=== PATIENT | male | born 1950 | race African-American/Black ===

== ENCOUNTER 2017-04-22 09:04 | Inpatient (IN) | payer OTHER, MEDICARE ==
[~2017-04-22] VITALS: Ht 170.2 cm; Wt 131.0 kg
[~2017-04-22 09:04] MED LIST: AMLO10 PO; ASPI81 PO; ATEN-100 PO; CHOL1TAB6 OR; GABA300 PO; GABA600T PO; GLYB5TAB3 OR; HYDR12.56 PO; LASI80TA PO; LATA0.00 EACH EYE; LISI-366 PO; OMEP20TA OR; OXYC5 PO; POTA-243 PO; THEO100C PO; VIAG50TA PO
[2017-04-22 09:15] VITALS: BP 188/70; PULSE 91; RESP 25; TEMP 97.5; O2SAT 95
[2017-04-22] MEDS ORDERED: SODIUM CHLOR 0.9% 1000 ML INJ 1,000 ML IV SCH (09:23)
[2017-04-22] MEDS ORDERED: METF500T4 PO (09:28)
[2017-04-22] MEDS ORDERED: GABA300C5 PO ×2 (09:28)
[2017-04-22] MEDS ORDERED: AMLO10TA2 PO (09:28)
[2017-04-22] MEDS ORDERED: POTA-163 PO (09:28)
[2017-04-22] MEDS ORDERED: ASPI81TA23 PO (09:28)
[2017-04-22] MEDS ORDERED: OMEP40CA2 (09:28)
[2017-04-22] MEDS ORDERED: ATEN25TA PO (09:28)
[2017-04-22] MEDS ORDERED: TIZA4CAP3 PO (09:28)
[2017-04-22] MEDS ORDERED: FURO40TA PO (09:28)
[2017-04-22] MEDS ORDERED: INSULIN (09:28)
[2017-04-22] MEDS ORDERED: LISI-515 PO (09:28)
[2017-04-22] MEDS ORDERED: SIMV20TA PO (09:28)
[2017-04-22] MEDS ORDERED: MORPHINE SULFATE 4 MG/ML INJ IV PUSH ONE (09:30)
[2017-04-22] MEDS ORDERED: SODIUM CHLORIDE 0.9% FLUSH 10 ML FLUSH IV FLUSH PRN (09:30)
[2017-04-22] MEDS ORDERED: ONDANSETRON HCL 4 MG/2 ML VIAL IVP ONE (09:30)
--- NOTE | 2017-04-22 09:32 | PD ---
HPI Chief Complaint: General Weakness Time Seen by Provider: 09:14 Travel History International Travel<30 days: No Contact w/Intl Traveler<30days: No Traveled to known affect area: No History of Present Illness HPI The patient is a 67-year-old [place] male who presents emergency department for generalized weakness. The patient states his symptoms started on Friday with low back pain and lower extremity weakness. The patient states his legs feel weak, states that his legs will go out and he will be unable to ambulate. The patient states his son helped him up 2 days ago after his legs gave out, however, states she was at home earlier today with his legs gave out. He does complain of low back pain across the mid to lower aspect of the back with bilateral leg weakness, especially at the knees. He does have a history of chronic back pain but denies any trauma, does take oxycodone that was prescribed at the [facility] for his back pain. He does have a remote history of prostate cancer, denies any history of known metastasis. He does complain of generalized weakness, denies any chest pain, shortness breath, nausea, vomiting, diarrhea, or abdominal pain. He denies any dysuria. Symptoms are moderate without any alleviating or exacerbating factors. The patient's primary physician is Dr. Mireya Hamilton. [facility] Past Medical History Arthritis: Yes Atrial Fibrillation: Yes Cancer: Yes (HX PROSTATE CA WITH RADIATION) High Cholesterol: Yes Diabetes: Yes Patient Takes Glucophage: Yes Genitourinary: Yes (UTI) Hypertension: Yes Sleep Apnea: Yes Past Surgical History Other Surgery: Yes (HERNIA REPAIR) Social History Alcohol Use: No Tobacco Use: No Substance Use: No Allergies-Medications (Allergen,Severity, Reaction): Coded Allergies: No Known Allergies (Verified Adverse Reaction, Unknown, 04/22/17) Reported Meds & Prescriptions Reported Meds & Active Scripts Active Reported [Insulin] Furosemide 40 Mg Tab 40 Mg PO DAILY Tizanidine (Tizanidine HCl) 4 Mg Cap 4 Mg PO TID Simvastatin 20 Mg Tab 20 Mg PO DAILY Atenolol 25 Mg Tab 37.5 Mg PO DAILY Metformin ER (Metformin HCl) 500 Mg Julián 500 Mg PO BID With evening meal Potassium Chloride ER (Potassium Chloride) 20 Meq Tab 20 Meq PO DAILY Gabapentin 300 Mg Cap 900 Mg PO HS Gabapentin 300 Mg Cap 600 Mg PO BID Lisinopril 20 Mg Tab 20 Mg PO DAILY Omeprazole 40 Mg Cap 40 Mg DAILY Amlodipine (Amlodipine Besylate) 10 Mg Tab 10 Mg PO BID Aspirin EC (Aspirin) 81 Mg Tabdr 81 Mg PO DAILY Review of Systems Except as stated in HPI: all other systems reviewed are Neg General / Constitutional: No: Fever Cardiovascular: No: Chest Pain or Discomfort Respiratory: No: Shortness of Breath Gastrointestinal: No: Nausea, Vomiting, Diarrhea, Abdominal Pain Genitourinary: No: Dysuria, Decreased Urinary Output Musculoskeletal: Positive: Weakness, Pain Neurologic: No: Paresthesia, Sensory Disturbance Physical Exam Narrative GENERAL: Awake, alert, 67-year-old male who appears his stated age and is in no acute respiratory distress. SKIN: Focused skin assessment warm/dry. HEAD: Atraumatic. Normocephalic. EYES: Pupils equal and round. No injection or drainage. ENT: No nasal bleeding or discharge. Mucous membranes pink and moist. NECK: Trachea midline. No JVD. CARDIOVASCULAR: Regular rate and rhythm. No murmur appreciated. Heart rate in the 90s. RESPIRATORY: No accessory muscle use. Clear to auscultation. Breath sounds equal bilaterally. GASTROINTESTINAL: Abdomen soft, obese with large pannus. Genitourinary: Uncircumcised phallus. Back: No midline tenderness of the lumbar thoracic region. No tenderness of the sacroiliac. MUSCULOSKELETAL: No obvious deformities. Bilateral lower extremity edema. Positive distal pulses. Extension of the knees bilateral is 5 over 5 with breakaway strength. Flexion of the has bilateral is 5 out of 5 with breakaway strength. Plantar flexion is 5 out of 5. NEUROLOGICAL: Awake and alert. No obvious cranial nerve deficits. Motor grossly within normal limits. Normal speech. Nonfocal. PSYCHIATRIC: Appropriate mood and affect; insight and judgment normal. Data Data Last Documented VS Vital Signs Date Time Temp Pulse Resp B/P (MAP) Pulse Ox O2 Delivery O2 Flow Rate FiO2 04/22/17 09:15 97.5 91 25 188/70 (109) 95 Orders Orders Complete Blood Count With Diff (04/22/17 09:23) Comprehensive Metabolic Panel (04/22/17 09:23) Lactic Acid (04/22/17 09:23) Urinalysis - C+S If Indicated (04/22/17 09:23) Iv Access Insert/Monitor (04/22/17 09:23) Ecg Monitoring (04/22/17 09:23) Oximetry (04/22/17 09:23) Morphine Inj (Morphine Inj) (04/22/17 09:30) Ondansetron Inj (Zofran Inj) (04/22/17 09:30) Sodium Chlor 0.9% 1000 Ml Inj (Ns 1000 M (04/22/17 09:23) Sodium Chloride 0.9% Flush (Ns Flush) (04/22/17 09:30) Electrocardiogram (04/22/17 09:23) Chest, Single Ap (04/22/17 09:23) Spine, Lumbar - Ltd (Ap & Lat) (04/22/17 ) Blood Culture (04/22/17 09:23) Pelvis, Ap Only (Routine) (04/22/17 ) Influenzae A/B Antigen (04/22/17 10:58) Ct Abd/Pel W/O Iv Contrast (04/22/17 ) Cath For Specimen (04/22/17 11:33) Ceftriaxone Inj (Rocephin Inj) (04/22/17 12:45) Vascular Access Team Consult/P PRN (04/22/17 12:49) Vascular Poc Ultrasound (04/22/17 ) Blood Culture (04/22/17 13:03) Admit Order (Ed Use Only) (04/22/17 13:03) Labs Laboratory Tests Test 04/22/17 10:20 04/22/17 12:00 White Blood Count 17.5 TH/MM3 Red Blood Count 5.21 MIL/MM3 Hemoglobin 14.3 GM/DL Hematocrit 41.7 % Mean Corpuscular Volume 80.1 FL Mean Corpuscular Hemoglobin 27.4 PG Mean Corpuscular Hemoglobin Concent 34.2 % Red Cell Distribution Width 14.5 % Platelet Count 286 TH/MM3 Mean Platelet Volume 7.4 FL Neutrophils (%) (Auto) 87.3 % Lymphocytes (%) (Auto) 5.1 % Monocytes (%) (Auto) 7.3 % Eosinophils (%) (Auto) 0.0 % Basophils (%) (Auto) 0.3 % Neutrophils # (Auto) 15.3 TH/MM3 Lymphocytes # (Auto) 0.9 TH/MM3 Monocytes # (Auto) 1.3 TH/MM3 Eosinophils # (Auto) 0.0 TH/MM3 Basophils # (Auto) 0.0 TH/MM3 CBC Comment DIFF FINAL Differential Comment Blood Urea Nitrogen 18 MG/DL Creatinine 0.80 MG/DL Random Glucose 215 MG/DL Total Protein 8.3 GM/DL Albumin 3.1 GM/DL Calcium Level 9.0 MG/DL Alkaline Phosphatase 122 U/L Aspartate Amino Transf (AST/SGOT) 471 U/L Alanine Aminotransferase (ALT/SGPT) 136 U/L Total Bilirubin 0.7 MG/DL Sodium Level 141 MEQ/L Potassium Level 3.7 MEQ/L Chloride Level 107 MEQ/L Carbon Dioxide Level 18.9 MEQ/L Anion Gap 15 MEQ/L Estimat Glomerular Filtration Rate 117 ML/MIN Lactic Acid Level 2.0 mmol/L Urine Color YELLOW Urine Turbidity CLEAR Urine pH 5.0 Urine Specific [place] 1.016 Urine Protein 30 mg/dL Urine Glucose (UA) TRACE mg/dL Urine Ketones 150 mg/dL Urine Occult Blood MOD Urine Nitrite NEG Urine Bilirubin NEG Urine Urobilinogen LESS THAN 2.0 MG/DL Urine Leukocyte Esterase SMALL Urine RBC 2 /hpf Urine WBC 5 /hpf Urine Bacteria RARE /hpf Urine Mucus FEW /lpf Microscopic Urinalysis Comment CULT NOT INDICATED MDM Medical Decision Making Medical Screen Exam Complete: Yes Emergency Medical Condition: Yes Medical Record Reviewed: Yes Interpretation(s) EKG reveals normal sinus rhythm with a rate 85. Q wave noted in lead V1, V2, V3. Q wave noted in lead 3 and aVF. Last Impressions Chest X-Ray 04/22/17922 Signed Impressions: Service Date/Time: Saturday, April 22, 2017 09:43 - CONCLUSION: 1. Cardiomegaly and hypoinflation 2. Subsegmental atelectasis left base. Ken Iglesias MD Pelvis X-Ray 04/22/17 Signed Impressions: Service Date/Time: Saturday, April 22, 2017 09:41 - CONCLUSION: 1. Degenerative changes involving the lower lumbar spine and bilateral hips are noted. 2. No acute fracture or dislocation. Hola Lopez MD Lumbar Spine X-Ray 04/22/17 Signed Impressions: Service Date/Time: Saturday, April 22, 2017 09:44 - CONCLUSION: 1. No acute compression fracture, spondylolisthesis or spondylolysis. 2. Mild degenerative disease of the lumbar spine. Hola Lopez MD CT abdomen and pelvis reveals the left kidney appears swollen with mild surrounding inflammatory change. 3 mm stone in the left pelvic ureter. Left kidney appears swollen with mild perinephric fatty tissue stranding. Differential Diagnosis Differential diagnosis includes metastatic disease, UTI, cauda equina syndrome, lumbar radiculopathy, spinal stenosis, hyponatremia, sepsis, Jacki Lozano. Narrative Course IV was established, labs are drawn and sent, and the patient was placed on cardiac telemetry monitoring and continuous pulse oximetry monitoring. EKG was ordered and interpreted. Chest x-ray, pelvis x-ray, lumbar spine x-ray were ordered. The patient was administered morphine, Zofran, and placed on IV fluids. Lactic acid was sent to lab. UA reveals RBCs and WBCs with rare bacteria. Creatinine is elevated. CT does reveal the left kidney appears swollen with mild perinephric fatty tissue stranding and a 3 mm stone in the left pelvic ureter. The patient was administered Rocephin and IV fluids. The patient has [employer], will be [address] [facility]. Sepsis Criteria SIRS Criteria (2 or more): Heart rate over 90, WBC > 98375, < 4000 or > 10% bands Sepsis Criteria (SIRS+source): Infect source susp/known Physician Communication Physician Communication [facility] were paged for admission. I discussed the patient with Dr. De La Fuente who agrees with 23 hour observation. Diagnosis Primary Impression: Complicated UTI (urinary tract infection) Additional Impressions: Nephrolithiasis SIRS (systemic inflammatory response syndrome) Admitting Information Admitting Physician Requests: Observation Condition: Stable Tj Santiago MD Apr 22, 2017 09:32
--- NOTE | 2017-04-22 10:24 | RADRPT ---
EXAM DATE/TIME: 04/22/2017 09:41 [facility] COMPARISON: No previous studies available for comparison. INDICATIONS : Pelvis pain after lowering himself to the ground today MEDICAL HISTORY : None. SURGICAL HISTORY : None. ENCOUNTER: Initial ACUITY: 1 day PAIN SCORE: 10/10 LOCATION: Left pelvis FINDINGS: Degenerative changes are noted involving the lower lumbar spine and bilateral hips. No acute fracture or dislocation is noted. CONCLUSION: 1. Degenerative changes involving the lower lumbar spine and bilateral hips are noted. 2. No acute fracture or dislocation. Hola Lopez MD on April 22, 2017 at 10:20 Board Certified Radiologist. This report was verified electronically.
--- NOTE | 2017-04-22 10:26 | RADRPT ---
EXAM DATE/TIME: 04/22/2017 09:44 [facility] COMPARISON: No previous studies available for comparison. INDICATIONS : Low back pain yesterday and today, patient states he had to lower himself to the ground but did not f all MEDICAL HISTORY : None. SURGICAL HISTORY : None. ENCOUNTER: Initial ACUITY: 2 days PAIN SCORE: 10/10 LOCATION: Bilateral lumbar FINDINGS: Mild degenerative changes of the lumbar spine. There is no acute compression fracture, spondylolisthe sis or spondylolysis. CONCLUSION: 1. No acute compression fracture, spondylolisthesis or spondylolysis. 2. Mild degenerative disease of the lumbar spine. Hola Lopez MD on April 22, 2017 at 10:22 Board Certified Radiologist. This report was verified electronically.
--- NOTE | 2017-04-22 10:33 | RADRPT ---
EXAM DATE/TIME: 04/22/2017 09:43 [facility] COMPARISON: CHEST SINGLE AP, October 01, 2014, 17:55. INDICATIONS : Chest pain today, patient had to lower himself to the ground today MEDICAL HISTORY : None. SURGICAL HISTORY : None. ENCOUNTER: Initial ACUITY: 1 day PAIN SCORE: 10/10 LOCATION: Bilateral chest FINDINGS: The cardiac silhouette is enlarged in transverse diameter. The aortic knob is prominent with tortuosi ty of the descending thoracic aorta. The lungs are hypoinflated. There is subsegmental atelectasis in the left base. CONCLUSION: 1. Cardiomegaly and hypoinflation 2. Subsegmental atelectasis left base. Ken Iglesias MD on April 22, 2017 at 10:21 Board Certified Radiologist. This report was verified electronically.
[2017-04-22 10:48] LABS: AUTOMATED NEUTROPHIL # 15.3 TH/MM3 (1.8-7.7); BASOPHIL % 0.3 % (0.0-2.0); HEMATOCRIT 41.7 % (39.0-51.0); HEMOGLOBIN 14.3 GM/DL (13.0-17.0); LYMPH % 5.1 % (9.0-44.0); LYMPHOCYTE # 0.9 TH/MM3 (1.0-4.8); MEAN CELL VOLUME 80.1 FL (80.0-100.0); MEAN CORPUSCULAR HEMOGLOBIN 27.4 PG (27.0-34.0); MEAN CORPUSCULAR HGB CONC 34.2 % (32.0-36.0); MEAN PLATELET VOLUME 7.4 FL (7.0-11.0); MONO % 7.3 % (0.0-8.0); MONOCYTE # 1.3 TH/MM3 (0-0.9); NEUT % 87.3 % (16.0-70.0); PLATELET COUNT 286 TH/MM3 (150-450); RED BLOOD COUNT 5.21 MIL/MM3 (4.50-5.90); RED CELL DISTRIBUTION WIDTH 14.5 % (11.6-17.2); WHITE BLOOD COUNT 17.5 TH/MM3 (4.0-11.0)
[2017-04-22 11:05] LABS: ALBUMIN 3.1 GM/DL (3.4-5.0); ALT (GPT) 136 U/L (12-78); AST (GOT) 471 U/L (15-37); BICARBONATE 18.9 MEQ/L (21.0-32.0); BLOOD UREA NITROGEN 18 MG/DL (7-18); CHLORIDE 107 MEQ/L (98-107); GLOMERULAR FILTRATION RATE 117 ML/MIN (>89); GLUCOSE,RANDOM 215 MG/DL (74-106); SODIUM (NA) 141 MEQ/L (136-145)
[2017-04-22 11:07] LABS: ALKALINE PHOSPHATASE 122 U/L (45-117); TOTAL BILIRUBIN ADULT 0.7 MG/DL (0.2-1.0); TOTAL PROTEIN 8.3 GM/DL (6.4-8.2)
[2017-04-22 12:21] LABS: BACTERIA, URINE RARE /hpf; BILIRUBIN, URINE NEG (NEG); BLOOD, URINE MOD (NEG); GLUCOSE,URINE TRACE mg/dL (NEG); KETONE, URINE 150 mg/dL (NEG); MUCUS URINE FEW /lpf (OCC); NITRITE,URINE NEG (NEG); URINE COLOR YELLOW (YELLW/STRAW); URINE LEUKOCYTE ESTERASE SMALL (NEG)
--- NOTE | 2017-04-22 12:38 | RADRPT ---
EXAM DATE/TIME: 04/22/2017 12:17 [facility] COMPARISON: CT ABDOMEN & PELVIS W/O CONTRAST, October 01, 2014, 21:17. INDICATIONS : Nausea, increased weakness Elevated LFT's and white blood count. ORAL CONTRAST: No oral contrast ingested. RADIATION DOSE: 28.32 CTDIvol (mGy) ; Patient body habitus MEDICAL HISTORY : Hypertension. Carcinoma, prostate. diabetes SURGICAL HISTORY : hernia repair ENCOUNTER: Initial ACUITY: 1 day PAIN SCALE: 0/10 LOCATION: Abdomen TECHNIQUE: Volumetric scanning of the abdomen and pelvis was performed. Using automated exposure control and ad justment of the mA and/or kV according to patient size, radiation dose was kept as low as reasonably achievable to obtain optimal diagnostic quality images. DICOM format image data is available electro nically for review and comparison. FINDINGS: LOWER LUNGS: Mild atelectasis or scarring in the left lung base. LIVER: Homogeneous density without lesion. There is no dilation of the biliary tree. Gallbladder slightly d istended. Normal dependent debris or sludge. No wall thickening or pericholecystic fluid suspected.. SPLEEN: Normal size without lesion. PANCREAS: Within normal limits. KIDNEYS: Left kidney appears swollen with mild perinephric fatty tissue stranding. No definite hydronephrosis, however there does appear to be a tiny stone in the left ureter at the level of the upper pelvis. Mi niscule nonobstructing stone in the lower pole collecting system. Right kidney is unremarkable. ADRENAL GLANDS: Within normal limits. VASCULAR: There is no aortic aneurysm. BOWEL/MESENTERY: Previous gastric surgery. No abnormal dilatation of bowel. No focal wall thickening or inflammatory c hanges. ABDOMINAL WALL: Within normal limits. RETROPERITONEUM: There is no lymphadenopathy. BLADDER: No wall thickening or mass. REPRODUCTIVE: Within normal limits. INGUINAL: There is no lymphadenopathy or hernia. MUSCULOSKELETAL: Within normal limits for patient age. CONCLUSION: The left kidney appears swollen with mild surrounding inflammatory change. 3 mm stone in the left pel ramo ureter. Joey Jonas MD on April 22, 2017 at 12:30 Board Certified Radiologist. This report was verified electronically.
[2017-04-22] MEDS ORDERED: cefTRIAXone INJ 1,000 MG in SODIUM CHLORIDE 0.9% INJ 100 ML IV ONE (12:45)
[2017-04-22 13:27] VITALS: BP 157/84
--- NOTE | 2017-04-22 13:32 | HHI.HP ---
[facility] Admission Diagnosis complicated UTI, perinephric stranding rule out pyelonephritis, SIRS Diagnoses: Travel History International Travel<30 Days: No Contact w/Intl Traveler <30 Da: No Traveled to Known Affected Are: No History of Present Illness History from patient, ER physician communication, and review of medical records. Patient's sons and daughter at the bedside also provided further history. Patient reported that yesterday, Friday around 11 AM, he was making his breakfast and suddenly started having severe back pain bilaterally. He reports that the pain was so severe that his knees buckled and she fell onto his knees. Denies hitting his head. Denies syncopal episode. He reports he never finished taking his breakfast and also did not take any of the medication since then. He stated he then wanted to go to urinate and was afraid that he would make a mess in his house and therefore he crawled himself to words the driveway. Once he is in the driveway, he urinated on himself and slide there on his stomach all day long until he was found by his brother's today around 9 AM. Therefore he was on the driveway in the cold for the past 22 hours. Upon further questioning, patient and family members stated that patient also had a fall out of his bed on Friday. He stated on Friday night, he was basically turning over to switch of his TV while on the bed and rolled and fell. He landed on his stomach then. Denies hitting his head. Denies syncope then. He stated this fall happened around 2 AM. His son who was living at home with him over the weekend found him on the ground around the area. He reports that after that for the son picked him up and he took his pain medicine oxycodone which is for his chronic back pain. He felt better after this and even drove himself and visited his who is at a rehabilitation facility. While he was at the rehabilitation, he continued to have pain and generalized weakness. Denies fevers. Denies diarrhea. Next and denies any urinary burning or pain on urination. However states that she has been having frequent urination and for this, he took an antibiotic which is prescribed for him by his urologist Dr. Ace last year. He stated he also met with his urologist sometime in mid March and was given more antibiotics. He states he took a total of 10 days of this antibiotic, 2 tablets twice a day. He states he completed this about a week ago. He did not have urine cultures done at the urologist office. He stated this was because he took the antibiotics a few days prior to seeing the urologist. Review of Systems Except as stated in HPI: all other systems reviewed are Neg Past Family Social History Past Medical History htn dm sleep apnea- on cpap at home and oxygen during night time 2007 prostate CA - s/p radiation neuropathy Past Surgical History gastric sleeve Allergies: Coded Allergies: No Known Allergies (Verified Allergy, Unknown, 04/22/17) Family History 2 sisters with dm brother- borderline dm his mom- borderline dm Social History quit smoking in 2001 no etoh abuse no drugs abuse still driving, lives with your , but is in rehab for now for hip replacement Physical Exam Vital Signs Vital Signs Date Time Temp Pulse Resp B/P (MAP) Pulse Ox O2 Delivery O2 Flow Rate FiO2 04/22/17 09:15 97.5 91 25 188/70 (109) 95 Physical Exam GENERAL: This is a well-nourished, well-developed patient, in no apparent distress. SKIN: No rashes, ecchymoses or lesions. Cool and dry. HEAD: Atraumatic. Normocephalic. No temporal or scalp tenderness. EYES: No scleral icterus. No injection or drainage. ENT: Nose without bleeding, purulent drainage or septal hematoma. Airway patent. NECK: Trachea midline. No JVD CARDIOVASCULAR: Regular rate and rhythm without murmurs, gallops, or rubs. RESPIRATORY: Clear to auscultation. Breath sounds equal bilaterally. No wheezes , rales, or rhonchi. GASTROINTESTINAL: Abdomen soft, non-tender, nondistended.. No guarding. MUSCULOSKELETAL: Extremities without clubbing, cyanosis, or edema. No calf tenderness. No tenderness on the spine. : Bilateral flank pain. No suprapubic tenderness. NEUROLOGICAL: Awake and alert. Motor and sensory grossly within normal limits. Normal speech. Laboratory Laboratory Tests Test 04/22/17 10:20 04/22/17 12:00 White Blood Count 17.5 Red Blood Count 5.21 Hemoglobin 14.3 Hematocrit 41.7 Mean Corpuscular Volume 80.1 Mean Corpuscular Hemoglobin 27.4 Mean Corpuscular Hemoglobin Concent 34.2 Red Cell Distribution Width 14.5 Platelet Count 286 Mean Platelet Volume 7.4 Neutrophils (%) (Auto) 87.3 Lymphocytes (%) (Auto) 5.1 Monocytes (%) (Auto) 7.3 Eosinophils (%) (Auto) 0.0 Basophils (%) (Auto) 0.3 Neutrophils # (Auto) 15.3 Lymphocytes # (Auto) 0.9 Monocytes # (Auto) 1.3 Eosinophils # (Auto) 0.0 Basophils # (Auto) 0.0 CBC Comment DIFF FINAL Differential Comment Blood Urea Nitrogen 18 Creatinine 0.80 Random Glucose 215 Total Protein 8.3 Albumin 3.1 Calcium Level 9.0 Alkaline Phosphatase 122 Aspartate Amino Transf (AST/SGOT) 471 Alanine Aminotransferase (ALT/SGPT) 136 Total Bilirubin 0.7 Sodium Level 141 Potassium Level 3.7 Chloride Level 107 Carbon Dioxide Level 18.9 Anion Gap 15 Estimat Glomerular Filtration Rate 117 Lactic Acid Level 2.0 Urine Color YELLOW Urine Turbidity CLEAR Urine pH 5.0 Urine Specific [place] 1.016 Urine Protein 30 Urine Glucose (UA) TRACE Urine Ketones 150 Urine Occult Blood MOD Urine Nitrite NEG Urine Bilirubin NEG Urine Urobilinogen LESS THAN 2.0 Urine Leukocyte Esterase SMALL Urine RBC 2 Urine WBC 5 Urine Bacteria RARE Urine Mucus FEW Microscopic Urinalysis Comment CULT NOT INDICATED Date/Time Source Procedure Growth Status 04/22/17 10:20 Blood Peripheral Aerobic Blood Culture Pending Received 04/22/17 10:20 Blood Peripheral Anaerobic Blood Culture Pending Received 04/22/17 11:05 Nasal Aspirate Influenza Types A,B Antigen (JENNIFFER) - Final NEGATIVE FOR FLU A AND B ANTIGEN.... Complete Result Diagram: 04/22/17 1020 04/22/17 1020 Imaging Last 48 hours Impressions Chest X-Ray 04/22/17 0996 Signed Impressions: Service Date/Time: Saturday, April 22, 2017 09:43 - CONCLUSION: 1. Cardiomegaly and hypoinflation 2. Subsegmental atelectasis left base. Ken Iglesias MD Pelvis X-Ray 04/22/17 0000 Signed Impressions: Service Date/Time: Saturday, April 22, 2017 09:41 - CONCLUSION: 1. Degenerative changes involving the lower lumbar spine and bilateral hips are noted. 2. No acute fracture or dislocation. Hola Lopez MD Lumbar Spine X-Ray 04/22/17 0000 Signed Impressions: Service Date/Time: Saturday, April 22, 2017 09:44 - CONCLUSION: 1. No acute compression fracture, spondylolisthesis or spondylolysis. 2. Mild degenerative disease of the lumbar spine. Hola Lopez MD Abdomen/Pelvis CT 04/22/17 0000 Signed Impressions: Service Date/Time: Saturday, April 22, 2017 12:17 - CONCLUSION: The left kidney appears swollen with mild surrounding inflammatory change. 3 mm stone in the left pelvic ureter. MD Teagan Gonzales VTE Risk Assessment Caprini VTE Risk Assessment: Mod/High Risk (score >= 2) Caprini Risk Assessment Model Point Value = 1 Point Value = 2 Point Value = 3 Point Value = 5 Age 41-60 Minor surgery BMI > 25 kg/m2 Swollen legs Varicose veins or History of unexplained or recurrent spontaneous Oral contraceptives or hormone replacement Sepsis (< 1 month) Serious lung disease, including pneumonia (< 1 month) Abnormal pulmonary function Acute myocardial infarction Congestive heart failure (< 1 month) History of inflammatory bowel disease Medical patient at bed rest Age 61-74 Arthroscopic surgery Major open surgery (> 45 min) Laparoscopic surgery (> 45 min) Malignancy Confined to bed (> 72 hours) Immobilizing plaster cast Central venous access Age >= 75 History of VTE Family history of VTE Factor V Leiden Prothrombin [id number] Lupus anticoagulant Anticardiolipin antibodies Elevated serum homocysteine Heparin-induced thrombocytopenia Other congenital or acquired thrombophilia Stroke (< 1 month) Elective arthroplasty Hip, pelvis, or leg fracture Acute spinal cord injury (< 1 month) Prophylaxis Regimen Total Risk Factor Score Risk Level Prophylaxis Regimen 0-1 Low Early ambulation 2 Moderate Order ONE of the following: *Sequential Compression Device (SCD) *Heparin 5000 units SQ BID 3-4 Higher Order ONE of the following medications: *Heparin 5000 units SQ TID *Enoxaparin/Lovenox 40 mg SQ daily (WT < 150 kg, CrCl > 30 mL/min) *Enoxaparin/Lovenox 30 mg SQ daily (WT < 150 kg, CrCl > 10-29 mL/min) *Enoxaparin/Lovenox 30 mg SQ BID (WT < 150 kg, CrCl > 30 mL/min) AND/OR *Sequential Compression Device (SCD) 5 or more Highest Order ONE of the following medications: *Heparin 5000 units SQ TID (Preferred with Epidurals) *Enoxaparin/Lovenox 40 mg SQ daily (WT < 150 kg, CrCl > 30 mL/min) *Enoxaparin/Lovenox 30 mg SQ daily (WT < 150 kg, CrCl > 10-29 mL/min) *Enoxaparin/Lovenox 30 mg SQ BID (WT < 150 kg, CrCl > 30 mL/min) AND *Sequential Compression Device (SCD) Assessment and Plan Assessment and Plan Impression: Sirs Pyelonephritis. Failed outpatient therapy. Leukocytosis with left shift Abnormal UA- partially treated UA Fall Generalized weakness. Secondary to acute infection. Possible rhabdomyolysis given the patient is on the ground for about 22 hours Elevated LFTs. Likely secondary to rhabdo Hypertension DM Obstructive sleep apnea. On CPAP and oxygen at home during nighttime. History of prostate CVA in 2007. Status post radiation therapy. Neuropathy Plan: IV hydration with normal saline 1 L bolus. Patient was given Rocephin IV in ER. Call patient's pharmacy on [address] at [address] [facility]. And find out his antibiotics name. Likely Bactrim. CPK head on. We'll follow LFTs , renal function Monitor fingersticks and cover with sliding scale coverage. Hold metformin. Hold statins. start ciprofloxacin 400mg iv q12hrs PT evaluation. DVT prophylaxis with Lovenox. Discussed Condition With patient, sons, daughter, ER Raven Herndon MD Apr 22, 2017 13:32
[2017-04-22] MEDS ORDERED: DEXTROSE 50% IN WATER 50 ML VIAL(D50) IV PUSH PRN (14:00)
[2017-04-22] MEDS ORDERED: GLUCAGON 1 MG/ML VIAL OTHER PRN (14:00)
[2017-04-22 14:59] VITALS: BP_SYST 155; BP_SYST 175; BP_DIAS 78; PULSE 91; RESP 24; O2SAT 95
[2017-04-22] MEDS: PANTOPRAZOLE SOD 40 MG DELAYED RELEASE TAB PO SCH (15:16)
[2017-04-22] MEDS: CIPROFLOXACIN 400 MG PREMIX 200 ML IV SCH (15:16)
[2017-04-22] MEDS: INSULIN ASPART SUPPLEMENTAL SCALE SQ SCH ×2 (17:34→20:49)
[2017-04-22 17:47] VITALS: BP 139/65; PULSE 84; RESP 18; TEMP 98.5; O2SAT 94
[2017-04-22 20:00] VITALS: BP 151/65; PULSE 90; RESP 20; TEMP 97.3; O2SAT 93
[2017-04-22] MEDS: GABAPENTIN 300 MG CAP PO SCH ×2 (20:07→20:08)
[2017-04-22 23:59] VITALS: PULSE 92
[2017-04-23] VITALS: BP 107/49; PULSE 89; RESP 20; TEMP 99.8; O2SAT 92
[2017-04-23 04:00] VITALS: BP 165/73; PULSE 91; RESP 18; TEMP 99.1; O2SAT 100
[2017-04-23] MEDS: CIPROFLOXACIN 400 MG PREMIX 200 ML IV SCH ×2 (04:10→13:12)
[2017-04-23 08:00] VITALS: BP 151/67; PULSE 86; RESP 17; TEMP 99; O2SAT 93
[2017-04-23] MEDS: ASPIRIN EC 81 MG TABEC PO SCH (08:41)
[2017-04-23] MEDS: POTASSIUM CHLORIDE 20 MEQ CONTROLLED RELEASE TAB PO SCH (08:41)
[2017-04-23] MEDS: ATENOLOL 25 MG TAB PO SCH (08:41)
[2017-04-23] MEDS: PANTOPRAZOLE SOD 40 MG DELAYED RELEASE TAB PO SCH (08:41)
[2017-04-23] MEDS: LISINOPRIL 20 MG TAB PO SCH (08:42)
[2017-04-23] MEDS: ENOXAPARIN SODIUM 40 MG/0.4 ML SYRINGE SQ SCH (08:42)
[2017-04-23] MEDS: GABAPENTIN 300 MG CAP PO SCH ×3 (08:42→21:16)
[2017-04-23 08:43] LABS: AUTOMATED NEUTROPHIL # 12.5 TH/MM3 (1.8-7.7); BASOPHIL # 0.1 TH/MM3 (0-0.2); BASOPHIL % 0.8 % (0.0-2.0); EOSINOPHIL # 0.1 TH/MM3 (0-0.4); EOSINOPHIL % 0.5 % (0.0-4.0); HEMATOCRIT 40.6 % (39.0-51.0); HEMOGLOBIN 14.2 GM/DL (13.0-17.0); LYMPH % 11.1 % (9.0-44.0); LYMPHOCYTE # 1.7 TH/MM3 (1.0-4.8); MEAN CORPUSCULAR HEMOGLOBIN 27.4 PG (27.0-34.0); MEAN PLATELET VOLUME 7.2 FL (7.0-11.0); MONO % 8.1 % (0.0-8.0); MONOCYTE # 1.3 TH/MM3 (0-0.9); NEUT % 79.5 % (16.0-70.0); PLATELET COUNT 309 TH/MM3 (150-450); RED CELL DISTRIBUTION WIDTH 13.9 % (11.6-17.2); WHITE BLOOD COUNT 15.7 TH/MM3 (4.0-11.0)
[2017-04-23] MEDS: NS + KCL 20 MEQ INJ 1,000 ML IV SCH ×2 (08:43→17:21)
[2017-04-23] MEDS: INSULIN ASPART SUPPLEMENTAL SCALE SQ SCH ×4 (08:46→21:17)
[2017-04-23 09:05] LABS: ALBUMIN 2.7 GM/DL (3.4-5.0); BICARBONATE 23.5 MEQ/L (21.0-32.0); BLOOD UREA NITROGEN 12 MG/DL (7-18); CALCIUM 9.2 MG/DL (8.5-10.1); CHLORIDE 108 MEQ/L (98-107); CREATININE 0.81 MG/DL (0.60-1.30); GLOMERULAR FILTRATION RATE 115 ML/MIN (>89); GLUCOSE,RANDOM 261 MG/DL (74-106); SODIUM (NA) 140 MEQ/L (136-145)
[2017-04-23 09:06] LABS: ALT (GPT) 119 U/L (12-78); AST (GOT) 240 U/L (15-37)
[2017-04-23 09:32] LABS: ALKALINE PHOSPHATASE 111 U/L (45-117); TOTAL BILIRUBIN ADULT 0.8 MG/DL (0.2-1.0); TOTAL PROTEIN 7.6 GM/DL (6.4-8.2)
[2017-04-23 12:00] VITALS: BP 114/58; PULSE 65; RESP 17; TEMP 96.4; O2SAT 94
--- NOTE | 2017-04-23 13:07 | EKG ---
Date Performed: 04/22/2017 Time Performed: 10:21:33 PTAGE: 67 years EKG: Sinus rhythm POSSIBLE ANTERIOR MYOCARDIAL INFARCTION INFERIOR MYOCARDIAL INFARCTION ABNORMAL ECG PREVIOUS TRACING : 11/24/2011 11.30 DOCTOR: Angus Zeng Interpretating Date/Time 04/23/2017 12:57:53
[2017-04-23] MEDS: INSULIN DETEMIR 100 UNITS/ML VIAL SQ SCH ×2 (13:15→21:16)
--- NOTE | 2017-04-23 15:13 | HHI.PR ---
Subjective Remarks Follow up rhabdomyolysis, UTI/pyelonephritis. Patient has no complaints at this time. Denies chest pain, dyspnea. Occasional nonproductive cough. Mild abdominal discomfort without nausea/vomiting/diarrhea/constipation. Objective Vitals Vital Signs Date Time Temp Pulse Resp B/P (MAP) Pulse Ox O2 Delivery O2 Flow Rate FiO2 04/23/17 12:00 96.4 65 17 114/58 (76) 94 04/23/17 08:00 99.0 86 17 151/67 (95) 93 04/23/17 04:00 99.1 91 18 165/73 (103) 100 04/23/17 00:00 99.8 89 20 107/49 (68) 92 04/22/17 23:59 92 04/22/17 20:00 97.3 90 20 151/65 (93) 93 04/22/17 17:47 98.5 84 18 139/65 (89) 94 04/22/17 16:53 I/O 04/22/17 04/22/17 04/22/17 04/23/17 04/23/17 04/23/17 07:00 15:00 23:00 07:00 15:00 23:00 Intake Total 200 ml Output Total 850 ml Balance -650 ml Intake IV Total 200 ml Output Urine Total 850 ml # Voids 0 Result Diagram: 04/23/17 0830 04/23/17 0830 Imaging Last Impressions Chest X-Ray 04/22/17 0923 Signed Impressions: Service Date/Time: Saturday, April 22, 2017 09:43 - CONCLUSION: 1. Cardiomegaly and hypoinflation 2. Subsegmental atelectasis left base. Ken Iglesias MD Pelvis X-Ray 04/22/17 0000 Signed Impressions: Service Date/Time: Saturday, April 22, 2017 09:41 - CONCLUSION: 1. Degenerative changes involving the lower lumbar spine and bilateral hips are noted. 2. No acute fracture or dislocation. Hola Lopez MD Lumbar Spine X-Ray 04/22/17 0000 Signed Impressions: Service Date/Time: Saturday, April 22, 2017 09:44 - CONCLUSION: 1. No acute compression fracture, spondylolisthesis or spondylolysis. 2. Mild degenerative disease of the lumbar spine. Hola Lopez MD Abdomen/Pelvis CT 04/22/17 0000 Signed Impressions: Service Date/Time: Saturday, April 22, 2017 12:17 - CONCLUSION: The left kidney appears swollen with mild surrounding inflammatory change. 3 mm stone in the left pelvic ureter. Joey Jonas MD Objective Remarks General: Obese male in no acute distress. Sitting up in a chair. Heart: Regular rate and rhythm. No murmur. Lungs: Clear to auscultation bilaterally. No wheezes, rales, or rhonchi. Breathing is nonlabored. Abdomen: Soft, nontender, nondistended. Extremities: 1+ bilateral lower extremity edema with venous stasis changes. Psych: Alert and oriented. Procedures None Urinary Catheter: No Vascular Central Line Catheter: No A/P Assessment and Plan 1. Pyelonephritis, failed outpatient therapy: Leukocytosis improving. Continue IV antibiotics. 2. Rhabdomyolysis: CK trending down. Continue IV fluids. 3. Elevated LFTs: Likely secondary to rhabdomyolysis. Hold statin. Monitor labs. 4. Diabetes mellitus: Monitor Accu-Cheks and cover with sliding scale insulin. Metformin on hold. 5. Fall, generalized weakness: Likely secondary to acute infection. Physical therapy eval. 6. DVT prophylaxis: Lovenox. Orion Sánchez MD Apr 23, 2017 15:13
[2017-04-23 20:00] VITALS: BP 137/65; PULSE 60; RESP 18; TEMP 96.9; O2SAT 96
[2017-04-24] VITALS (8 sets, daily range): BP systolic 132–157; BP diastolic 60–84; PULSE 60–76; RESP 18–24; TEMP 96.7–98.2; O2SAT 94–96
[2017-04-24] MEDS: CIPROFLOXACIN 400 MG PREMIX 200 ML IV SCH ×2 (03:32→18:12)
[2017-04-24] MEDS: NS + KCL 20 MEQ INJ 1,000 ML IV SCH ×3 (05:52→18:12)
[2017-04-24 07:17] LABS: AUTOMATED NEUTROPHIL # 9.5 TH/MM3 (1.8-7.7); BASOPHIL # 0.1 TH/MM3 (0-0.2); BASOPHIL % 0.4 % (0.0-2.0); EOSINOPHIL # 0.2 TH/MM3 (0-0.4); EOSINOPHIL % 1.3 % (0.0-4.0); HEMATOCRIT 36.2 % (39.0-51.0); HEMOGLOBIN 12.9 GM/DL (13.0-17.0); LYMPH % 14.8 % (9.0-44.0); LYMPHOCYTE # 1.9 TH/MM3 (1.0-4.8); MEAN CELL VOLUME 78.4 FL (80.0-100.0); MEAN CORPUSCULAR HEMOGLOBIN 27.9 PG (27.0-34.0); MEAN CORPUSCULAR HGB CONC 35.5 % (32.0-36.0); MEAN PLATELET VOLUME 7.5 FL (7.0-11.0); MONO % 9.9 % (0.0-8.0); MONOCYTE # 1.3 TH/MM3 (0-0.9); NEUT % 73.6 % (16.0-70.0); PLATELET COUNT 290 TH/MM3 (150-450); RED BLOOD COUNT 4.61 MIL/MM3 (4.50-5.90); RED CELL DISTRIBUTION WIDTH 14.5 % (11.6-17.2); WHITE BLOOD COUNT 12.9 TH/MM3 (4.0-11.0)
[2017-04-24 07:39] LABS: ALBUMIN 2.3 GM/DL (3.4-5.0); ALT (GPT) 105 U/L (12-78); AST (GOT) 177 U/L (15-37); BICARBONATE 26.8 MEQ/L (21.0-32.0); BLOOD UREA NITROGEN 12 MG/DL (7-18); CALCIUM 8.3 MG/DL (8.5-10.1); CHLORIDE 108 MEQ/L (98-107); CREATININE 0.68 MG/DL (0.60-1.30); GLOMERULAR FILTRATION RATE 141 ML/MIN (>89); GLUCOSE,RANDOM 177 MG/DL (74-106); SODIUM (NA) 142 MEQ/L (136-145)
[2017-04-24 07:53] LABS: ALKALINE PHOSPHATASE 109 U/L (45-117); TOTAL BILIRUBIN ADULT 0.5 MG/DL (0.2-1.0); TOTAL PROTEIN 6.8 GM/DL (6.4-8.2)
[2017-04-24] MEDS: INSULIN ASPART SUPPLEMENTAL SCALE SQ SCH ×4 (10:37→20:49)
[2017-04-24] MEDS: ENOXAPARIN SODIUM 40 MG/0.4 ML SYRINGE SQ SCH (10:38)
[2017-04-24] MEDS: POTASSIUM CHLORIDE 20 MEQ CONTROLLED RELEASE TAB PO SCH (10:38)
[2017-04-24] MEDS: ATENOLOL 25 MG TAB PO SCH (10:38)
[2017-04-24] MEDS: LISINOPRIL 20 MG TAB PO SCH (10:39)
[2017-04-24] MEDS: GABAPENTIN 300 MG CAP PO SCH ×3 (10:39→20:48)
[2017-04-24] MEDS: ASPIRIN EC 81 MG TABEC PO SCH (10:39)
[2017-04-24] MEDS: PANTOPRAZOLE SOD 40 MG DELAYED RELEASE TAB PO SCH (10:39)
[2017-04-24] MEDS: INSULIN DETEMIR 100 UNITS/ML VIAL SQ SCH ×2 (10:40→20:49)
--- NOTE | 2017-04-24 15:06 | HHI.PR ---
Subjective Remarks Follow-up UTI, rhabdomyolysis. Patient is feeling better. Reports nonproductive cough. No dyspnea. No muscle pains. Objective Vitals Vital Signs Date Time Temp Pulse Resp B/P (MAP) Pulse Ox O2 Delivery O2 Flow Rate FiO2 04/24/17 12:00 97.2 66 19 132/60 (84) 96 04/24/17 08:00 98.2 73 18 156/84 (108) 94 04/24/17 04:06 73 04/24/17 00:00 96.7 76 18 144/68 (93) 95 04/23/17 20:00 96.9 60 18 137/65 (89) 96 I/O 04/23/17 04/23/17 04/23/17 04/24/17 04/24/17 04/24/17 07:00 15:00 23:00 07:00 15:00 23:00 Intake Total 200 ml 1000 ml 1680 ml 1340 ml Output Total 850 ml 1050 ml 1200 ml Balance -650 ml 1000 ml 630 ml 140 ml Intake Oral 1480 ml 240 ml IV Total 200 ml 1000 ml 200 ml 1100 ml Output Urine Total 850 ml 1050 ml 1200 ml # Bowel Movements 0 Result Diagram: 04/24/17 0526 04/24/17 0526 Imaging Last Impressions Chest X-Ray 04/22/17922 Signed Impressions: Service Date/Time: Saturday, April 22, 2017 09:43 - CONCLUSION: 1. Cardiomegaly and hypoinflation 2. Subsegmental atelectasis left base. Ken Iglesias MD Pelvis X-Ray 04/22/17 0000 Signed Impressions: Service Date/Time: Saturday, April 22, 2017 09:41 - CONCLUSION: 1. Degenerative changes involving the lower lumbar spine and bilateral hips are noted. 2. No acute fracture or dislocation. Hola Lopez MD Lumbar Spine X-Ray 04/22/17 0000 Signed Impressions: Service Date/Time: Saturday, April 22, 2017 09:44 - CONCLUSION: 1. No acute compression fracture, spondylolisthesis or spondylolysis. 2. Mild degenerative disease of the lumbar spine. Hola Lopez MD Abdomen/Pelvis CT 04/22/17 0000 Signed Impressions: Service Date/Time: Saturday, April 22, 2017 12:17 - CONCLUSION: The left kidney appears swollen with mild surrounding inflammatory change. 3 mm stone in the left pelvic ureter. Joey Jonas MD Objective Remarks General: Obese male in no acute distress. Sitting up in a chair. Heart: Regular rate and rhythm. No murmur. Lungs: Clear to auscultation bilaterally. No wheezes, rales, or rhonchi. Breathing is nonlabored. Abdomen: Soft, nontender, nondistended. Extremities: 2+ bilateral lower extremity edema with venous stasis changes. Psych: Alert and oriented. Procedures None Urinary Catheter: No Vascular Central Line Catheter: No A/P Assessment and Plan 1. Pyelonephritis, failed outpatient therapy: Leukocytosis improved. Continue IV antibiotics. 2. Rhabdomyolysis: CK trending down. Continue IV fluids. 3. Elevated LFTs: Likely secondary to rhabdomyolysis. Hold statin. Monitor labs. 4. Diabetes mellitus: Monitor Accu-Cheks and cover with sliding scale insulin. Metformin on hold. 5. Fall, generalized weakness: Likely secondary to acute infection. Physical therapy eval. 6. DVT prophylaxis: Lovenox. 7. Bilateral lower extremity edema: Chronic, but slightly worse today. Decrease IV fluid rate. Discharge Planning Plan for discharge 1-2 days, home with home health versus SNF. Orion Sánchez MD Apr 24, 2017 15:06
[2017-04-25] VITALS: BP 155/68; PULSE 64; RESP 22; TEMP 98.1; O2SAT 95
[2017-04-25] MEDS: CIPROFLOXACIN 400 MG PREMIX 200 ML IV SCH (02:56)
[2017-04-25 04:00] VITALS: BP 151/69; PULSE 66; PULSE 70; RESP 22; TEMP 98.2; O2SAT 95
[2017-04-25 05:46] LABS: AUTOMATED NEUTROPHIL # 6.8 TH/MM3 (1.8-7.7); BASOPHIL # 0.1 TH/MM3 (0-0.2); BASOPHIL % 0.5 % (0.0-2.0); EOSINOPHIL # 0.1 TH/MM3 (0-0.4); EOSINOPHIL % 1.4 % (0.0-4.0); HEMATOCRIT 36.8 % (39.0-51.0); HEMOGLOBIN 13.1 GM/DL (13.0-17.0); LYMPH % 19.8 % (9.0-44.0); MEAN CELL VOLUME 77.9 FL (80.0-100.0); MEAN CORPUSCULAR HEMOGLOBIN 27.7 PG (27.0-34.0); MEAN CORPUSCULAR HGB CONC 35.5 % (32.0-36.0); MEAN PLATELET VOLUME 7.2 FL (7.0-11.0); MONO % 10.6 % (0.0-8.0); MONOCYTE # 1.1 TH/MM3 (0-0.9); NEUT % 67.7 % (16.0-70.0); PLATELET COUNT 316 TH/MM3 (150-450); RED BLOOD COUNT 4.73 MIL/MM3 (4.50-5.90); RED CELL DISTRIBUTION WIDTH 14.3 % (11.6-17.2); WHITE BLOOD COUNT 10.1 TH/MM3 (4.0-11.0)
[2017-04-25 06:10] LABS: ALBUMIN 2.3 GM/DL (3.4-5.0); AST (GOT) 117 U/L (15-37); BICARBONATE 28.4 MEQ/L (21.0-32.0); BLOOD UREA NITROGEN 8 MG/DL (7-18); CALCIUM 8.2 MG/DL (8.5-10.1); CHLORIDE 108 MEQ/L (98-107); GLOMERULAR FILTRATION RATE 163 ML/MIN (>89); GLUCOSE,RANDOM 159 MG/DL (74-106); SODIUM (NA) 143 MEQ/L (136-145)
[2017-04-25 06:25] LABS: ALKALINE PHOSPHATASE 97 U/L (45-117); ALT (GPT) 100 U/L (12-78); TOTAL BILIRUBIN ADULT 0.4 MG/DL (0.2-1.0); TOTAL PROTEIN 6.7 GM/DL (6.4-8.2)
[2017-04-25] MEDS: NS + KCL 20 MEQ INJ 1,000 ML IV SCH (06:42)
[2017-04-25 08:00] VITALS: BP 136/59; PULSE 65; RESP 17; TEMP 96.7; O2SAT 96
[2017-04-25] MEDS: LISINOPRIL 20 MG TAB PO SCH (08:15)
[2017-04-25] MEDS: ENOXAPARIN SODIUM 40 MG/0.4 ML SYRINGE SQ SCH (08:15)
[2017-04-25] MEDS: PANTOPRAZOLE SOD 40 MG DELAYED RELEASE TAB PO SCH (08:15)
[2017-04-25] MEDS: ATENOLOL 25 MG TAB PO SCH (08:15)
[2017-04-25] MEDS: GABAPENTIN 300 MG CAP PO SCH (08:15)
[2017-04-25] MEDS: POTASSIUM CHLORIDE 20 MEQ CONTROLLED RELEASE TAB PO SCH (08:16)
[2017-04-25] MEDS: ASPIRIN EC 81 MG TABEC PO SCH (08:16)
[2017-04-25] MEDS: INSULIN ASPART SUPPLEMENTAL SCALE SQ SCH ×2 (08:17→12:00)
[2017-04-25] MEDS: INSULIN DETEMIR 100 UNITS/ML VIAL SQ SCH (08:17)
[2017-04-25 09:00] VITALS: PULSE 80
[2017-04-25] MEDS ORDERED: POTASSIUM CHLORIDE 10 MEQ CONTROLLED RELEASE TAB PO ONE (09:00)
[2017-04-25] MEDS ORDERED: LEVEMIR SQ (11:52)
[2017-04-25] MEDS ORDERED: CIPR500T2 PO (11:52)
--- NOTE | 2017-04-25 11:52 | HHI.DCPOC ---
Discharge Care Plan Diagnosis: (1) Acute kidney injury (2) Nephrolithiasis (3) SIRS (systemic inflammatory response syndrome) (4) Complicated UTI (urinary tract infection) Goals to Promote Your Health * To prevent worsening of your condition and complications * To maintain your health at the optimal level Directions to Meet Your Goals Take your medications as prescribed Follow your dietary instruction Follow activity as directed Keep your appointments as scheduled Take your immunizations and boosters as scheduled If your symptoms worsen call your PCP, if no PCP go to Urgent Care Center or Emergency Room Smoking is Dangerous to Your Health. Avoid second hand smoke Call the 24-hour hour crisis hotline for domestic abuse at Orion Sánchez MD Apr 25, 2017 11:52
--- NOTE | 2017-04-25 11:53 | HHI.FF ---
Face to Face Verification Diagnosis: (1) Acute kidney injury (2) SIRS (systemic inflammatory response syndrome) (3) Complicated UTI (urinary tract infection) (4) Nephrolithiasis Physical Therapy Order: Evaluate and Treat Home Health Nursing Order: Nursing assessment with vital signs I have seen patient Ivan Santiago on 04/25/17. My clinical findings support the need for the requested home health care services because: High risk of falls I certify that my clinical findings support that this patient is homebound because: Unsteady gait/balance Orion Sánchez MD Apr 25, 2017 11:53
--- NOTE | 2017-04-25 11:54 | HHI.DS ---
Discharge Summary Admission Date Apr 22, 2017 at 14:19 Discharge Date: Apr 25, 2017 Admitting Diagnosis complicated UTI, perinephric stranding rule out pyelonephritis, SIRS (1) Acute kidney injury ICD Code: N17.9 - Acute kidney failure, unspecified Status: Acute (2) Nephrolithiasis ICD Code: N20.0 - Calculus of kidney Status: Acute (3) SIRS (systemic inflammatory response syndrome) ICD Code: R65.10 - Systemic inflammatory response syndrome (SIRS) of non- infectious origin without acute organ dysfunction Status: Acute (4) Complicated UTI (urinary tract infection) ICD Code: N39.0 - Urinary tract infection, site not specified Status: Acute Procedures None Brief History - From Admission History from patient, ER physician communication, and review of medical records. Patient's sons and daughter at the bedside also provided further history. Patient reported that yesterday, Friday around 11 AM, he was making his breakfast and suddenly started having severe back pain bilaterally. He reports that the pain was so severe that his knees buckled and she fell onto his knees. Denies hitting his head. Denies syncopal episode. He reports he never finished taking his breakfast and also did not take any of the medication since then. He stated he then wanted to go to urinate and was afraid that he would make a mess in his house and therefore he crawled himself to words the driveway. Once he is in the driveway, he urinated on himself and slide there on his stomach all day long until he was found by his brother's today around 9 AM. Therefore he was on the driveway in the cold for the past 22 hours. Upon further questioning, patient and family members stated that patient also had a fall out of his bed on Friday. He stated on Friday night, he was basically turning over to switch of his TV while on the bed and rolled and fell. He landed on his stomach then. Denies hitting his head. Denies syncope then. He stated this fall happened around 2 AM. His son who was living at home with him over the weekend found him on the ground around the area. He reports that after that for the son picked him up and he took his pain medicine oxycodone which is for his chronic back pain. He felt better after this and even drove himself and visited his who is at a rehabilitation facility. While he was at the rehabilitation, he continued to have pain and generalized weakness. Denies fevers. Denies diarrhea. Next and denies any urinary burning or pain on urination. However states that she has been having frequent urination and for this, he took an antibiotic which is prescribed for him by his urologist Dr. Ace last year. He stated he also met with his urologist sometime in mid March and was given more antibiotics. He states he took a total of 10 days of this antibiotic, 2 tablets twice a day. He states he completed this about a week ago. He did not have urine cultures done at the urologist office. He stated this was because he took the antibiotics a few days prior to seeing the urologist. CBC/BMP: 04/25/1718 04/25/17 0518 Significant Findings Laboratory Tests Test 04/22/17 12:00 04/23/17 08:30 04/24/17 05:26 04/25/17 05:18 Urine Protein 30 mg/dL (NEG-TRACE) Urine Ketones 150 mg/dL (NEG) Urine Occult Blood MOD (NEG) Urine Leukocyte Esterase SMALL (NEG) Urine Bacteria RARE /hpf (NONE) Urine Mucus FEW /lpf (OCC) White Blood Count 15.7 TH/MM3 (4.0-11.0) 12.9 TH/MM3 (4.0-11.0) Mean Corpuscular Volume 78.0 FL (80.0-100.0) 78.4 FL (80.0-100.0) 77.9 FL (80.0-100.0) Neutrophils (%) (Auto) 79.5 % (16.0-70.0) 73.6 % (16.0-70.0) Monocytes (%) (Auto) 8.1 % (0.0-8.0) 9.9 % (0.0-8.0) 10.6 % (0.0-8.0) Neutrophils # (Auto) 12.5 TH/MM3 (1.8-7.7) 9.5 TH/MM3 (1.8-7.7) Monocytes # (Auto) 1.3 TH/MM3 (0-0.9) 1.3 TH/MM3 (0-0.9) 1.1 TH/MM3 (0-0.9) Random Glucose 261 MG/DL (74-106) 177 MG/DL (74-106) 159 MG/DL (74-106) Albumin 2.7 GM/DL (3.4-5.0) 2.3 GM/DL (3.4-5.0) 2.3 GM/DL (3.4-5.0) Aspartate Amino Transf (AST/SGOT) 240 U/L (15-37) 177 U/L (15-37) 117 U/L (15-37) Alanine Aminotransferase (ALT/SGPT) 119 U/L (12-78) 105 U/L (12-78) 100 U/L (12-78) Chloride Level 108 MEQ/L (98-107) 108 MEQ/L (98-107) 108 MEQ/L (98-107) Total Creatine Kinase 7125 U/L (39-308) 4251 U/L (39-308) 1938 U/L (39-308) Creatine Kinase MB 18.1 NG/ML (0.5-3.6) 8.4 NG/ML (0.5-3.6) 4.2 NG/ML (0.5-3.6) Hemoglobin 12.9 GM/DL (13.0-17.0) Hematocrit 36.2 % (39.0-51.0) 36.8 % (39.0-51.0) Calcium Level 8.3 MG/DL (8.5-10.1) 8.2 MG/DL (8.5-10.1) Potassium Level 3.4 MEQ/L (3.5-5.1) 3.3 MEQ/L (3.5-5.1) Imaging Last Impressions Chest X-Ray 04/22/17 0923 Signed Impressions: Service Date/Time: Saturday, April 22, 2017 09:43 - CONCLUSION: 1. Cardiomegaly and hypoinflation 2. Subsegmental atelectasis left base. Ken Iglesias MD Pelvis X-Ray 04/22/17 0000 Signed Impressions: Service Date/Time: Saturday, April 22, 2017 09:41 - CONCLUSION: 1. Degenerative changes involving the lower lumbar spine and bilateral hips are noted. 2. No acute fracture or dislocation. Hola Lopez MD Lumbar Spine X-Ray 04/22/17 0000 Signed Impressions: Service Date/Time: Saturday, April 22, 2017 09:44 - CONCLUSION: 1. No acute compression fracture, spondylolisthesis or spondylolysis. 2. Mild degenerative disease of the lumbar spine. Hola Lopez MD Abdomen/Pelvis CT 04/22/17 0000 Signed Impressions: Service Date/Time: Saturday, April 22, 2017 12:17 - CONCLUSION: The left kidney appears swollen with mild surrounding inflammatory change. 3 mm stone in the left pelvic ureter. Joey Jonas MD PE at Discharge General: Obese male in no acute distress. Sitting up in a chair. Heart: Regular rate and rhythm. No murmur. Lungs: Clear to auscultation bilaterally. No wheezes, rales, or rhonchi. Breathing is nonlabored. Abdomen: Soft, nontender, nondistended. Extremities: 2+ bilateral lower extremity edema with venous stasis changes. Psych: Alert and oriented. Pt update on day of discharge The patient has no complaints at this time. He wants to go home today. Denies chest pain or dyspnea. Mild cough and is requesting a cough medicine. Hospital Course The patient was admitted for further treatment of pyelonephritis that failed outpatient therapy. He was continued on IV antibiotics. He was found to have rhabdomyolysis. Serum CK was monitored. He was continued on IV fluids. Serum CK decreased significantly and the patient had no further symptoms from the rhabdomyolysis. Physical therapy evaluated the patient and felt that he was stable for discharge home with home health care. The patient improved clinically throughout the hospitalization. Pt Condition on Discharge: Stable Discharge Disposition: Disch w/ Home Health Serv Discharge Time: > 30 minutes Discharge Instructions DIET: Follow Instructions for: Heart Healthy Diet Activities you can perform: Regular-No Restrictions Follow up Referrals: PCP Follow-up - 1 Week Urology with Leonides Brown M.d. New Medications: Ciprofloxacin (Ciprofloxacin) 500 Mg Tab 500 MG PO BID for Infection, #10 TAB 0 Refills Walker with Front Wheels (Walker with Front Wheels) 1 Mis Mis EA .XX DIRECTED, #1 0 Refills Insulin Detemir Inj (Levemir Inj) 1,000 unit/ 10 ML Vial 14 UNITS SQ Q12HR for Blood Sugar Management, #60 INJECTION 0 Refills Do not mix with any other Insulin. Continued Medications: Amlodipine (Amlodipine) 10 Mg Tab 10 MG PO BID for Blood Pressure Management, #30 TAB [address] (Aspirin EC) 81 Mg Tabdr 81 MG PO DAILY, TAB 0 Refills Atenolol (Atenolol) 25 Mg Tab 37.5 MG PO DAILY for Blood Pressure Management, #30 TAB Furosemide (Furosemide) 40 Mg Tab 40 MG PO DAILY, #30 TAB 0 Refills Gabapentin (Gabapentin) 300 Mg Cap 600 MG PO BID, #60 CAP 0 Refills Gabapentin (Gabapentin) 300 Mg Cap 900 MG PO HS, #30 CAP 0 Refills Lisinopril (Lisinopril) 20 Mg Tab 20 MG PO DAILY, #30 TAB 0 Refills Metformin ER (Metformin ER) 500 Mg Julián 500 MG PO BID for Blood Sugar Management, TAB 0 Refills With evening meal Omeprazole (Omeprazole) 40 Mg Cap 40 MG DAILY, #30 CAP 0 Refills Potassium Chloride ER (Potassium Chloride ER) 20 Meq Tab 20 MEQ PO DAILY for Electrolyte Replacement, #30 TAB 0 Refills Simvastatin (Simvastatin) 20 Mg Tab 20 MG PO DAILY for Cholesterol Management, #30 TAB 0 Refills Discontinued Medications: Tizanidine (Tizanidine) 4 Mg Cap 4 MG PO TID for Muscle Spasm, CAP 0 Refills [Insulin] () Orion Sánchez MD Apr 25, 2017 11:54
[2017-04-25] MEDS ORDERED: BARIATRIC ROLLA1 MIS (11:55)
[2017-04-25] MEDS ORDERED: WALKER WHEELS/F1 MIS (12:38)
== END 2017-04-25 15:10 | disposition home health service (06) | DRG 690 ==
LOC: NEPC 09:04 → NEDA 13:05 → OBSVTOIN 14:19 → N07B 16:52
PROVIDERS: ADMIT Family Medicine; ATTEND Family Medicine
DX: N12 Tubulo-interstitial nephritis, not specified as acute or chronic (principal); M62.82 Rhabdomyolysis; R65.10 Systemic inflammatory response syndrome (SIRS) of non-infectious origin without acute organ dysfunction; I11.9 Hypertensive heart disease without heart failure; E11.42 Type 2 diabetes mellitus with diabetic polyneuropathy; Z99.81 Dependence on supplemental oxygen; I48.91 Unspecified atrial fibrillation; Z68.42 Body mass index [BMI] 45.0-49.9, adult; G47.33 Obstructive sleep apnea (adult) (pediatric); G89.29 Other chronic pain; M54.5 Low back pain; E78.00 Pure hypercholesterolemia, unspecified; N20.0 Calculus of kidney; E66.9 Obesity, unspecified; R60.0 Localized edema; M19.90 Unspecified osteoarthritis, unspecified site; Z79.4 Long term (current) use of insulin; Z85.46 Personal history of malignant neoplasm of prostate; Z86.73 Personal history of transient ischemic attack (TIA), and cerebral infarction without residual deficits; Z87.891 Personal history of nicotine dependence; Z91.81 History of falling; Z92.3 Personal history of irradiation
CPT/HCPCS: 71045; 72100; 72170; 74176; 76937; 80053; 81001; 82550; 82552; 82948; 83605; 85025; 87040; 87804; 93005; 99285; J0696; J0744; J1650; J1815; J2270; J2405; J3480; J7030

== ENCOUNTER 2017-09-05 16:33 | Emergency (ER) | payer MEDICARE, OTHER ==
[~2017-09-05] VITALS: Ht 170.2 cm; Wt 129.0 kg
[~2017-09-05 16:33] MED LIST changes: -AMLO10 PO; +AMLO10TA2 PO; -ASPI81 PO; +ASPI81TA23 PO; -ATEN-100 PO; +ATEN25TA PO; -CHOL1TAB6 OR; +CIPR500T2 PO; +FURO40TA PO; -GABA300 PO; +GABA300C5 PO; -GABA600T PO; -GLYB5TAB3 OR; -HYDR12.56 PO; -LASI80TA PO; -LATA0.00 EACH EYE; +LEVEMIR SQ; -LISI-366 PO; +LISI-515 PO; +METF500T4 PO; -OMEP20TA OR; +OMEP40CA2; -OXYC5 PO; +POTA-163 PO; -POTA-243 PO; +SIMV20TA PO; -THEO100C PO; -VIAG50TA PO; +WALKER WHEELS/F1 MIS
[2017-09-05 16:58] VITALS: BP 128/63; PULSE 65; RESP 15; TEMP 99.2; O2SAT 94
[2017-09-05 18:17] LABS: BACTERIA, URINE MANY /hpf; BILIRUBIN, URINE NEG (NEG); BLOOD, URINE SMALL (NEG); GLUCOSE,URINE NEG (NEG); KETONE, URINE NEG (NEG); MUCUS URINE FEW /lpf (OCC); NITRITE,URINE POS (NEG); SQUAMOUS EPITHELIAL CELL URINE 1 /hpf (0-5); URINE COLOR YELLOW (YELLW/STRAW); URINE LEUKOCYTE ESTERASE LARGE (NEG); WHITE BLOOD CELL CLUMPS MANY
[2017-09-05] MEDS ORDERED: cefTRIAXone INJ 1,000 MG in SODIUM CHLORIDE 0.9% INJ 100 ML IV ONE (19:15)
--- NOTE | 2017-09-05 19:51 | PD ---
HPI Chief Complaint: Complaint Time Seen by Provider: 19:08 Travel History International Travel<30 days: No Contact w/Intl Traveler<30days: No Traveled to known affect area: No History of Present Illness HPI 67-year-old male the presents to the ED for evaluation of lower back pain and polyuria and dysuria. Per patient has had this since last night. Per patient he has a history of kidney stones as well as UTIs in the past. Per patient feels similar. Patient was seen here in May for similar and was admitted secondary to a kidney stone as well as kidney injury from the kidney stone and infection. Patient reports that the pain currently is 0 and it only comes when he urinates. He denies any blood in his urine. He denies any discharge. No testicular pain. No pain currently but when the pain comes per patient is 3 out of 10. He does have a history of chronic back problems. Has no allergies to medication. No other medical issues. PFSH Past Medical History Arthritis: Yes Atrial Fibrillation: Yes Cancer: Yes (prostate) High Cholesterol: Yes Diabetes: Yes Genitourinary: No Hypertension: Yes Musculoskeletal: No Neurologic: No Psychiatric: No Reproductive: No Radiation Therapy: Yes Sleep Apnea: Yes Past Surgical History Abdominal Surgery: Yes (lap sleeve) Other Surgery: Yes (HERNIA REPAIR) Social History Alcohol Use: No Tobacco Use: No Substance Use: No Allergies-Medications (Allergen,Severity, Reaction): Coded Allergies: No Known Allergies (Verified Allergy, Unknown, 04/22/17) Reported Meds & Prescriptions Reported Meds & Active Scripts Active Pyridium (Phenazopyridine HCl) 100 Mg Tab 100 Mg PO Q8H PRN Cipro (Ciprofloxacin HCl) 500 Mg Tab 500 Mg PO BID 10 Days Walker with Front Wheels (Device) 1 Mis Mis Ea .XX DIRECTED Levemir Inj (Insulin Detemir) 1,000 unit/ 10 ML Vial 14 Units SQ Q12HR Do not mix with any other Insulin. Ciprofloxacin (Ciprofloxacin HCl) 500 Mg Tab 500 Mg PO BID Reported Furosemide 40 Mg Tab 40 Mg PO DAILY Simvastatin 20 Mg Tab 20 Mg PO DAILY Atenolol 25 Mg Tab 37.5 Mg PO DAILY Metformin ER (Metformin HCl) 500 Mg Julián 500 Mg PO BID With evening meal Potassium Chloride ER (Potassium Chloride) 20 Meq Tab 20 Meq PO DAILY Gabapentin 300 Mg Cap 900 Mg PO HS Gabapentin 300 Mg Cap 600 Mg PO BID Lisinopril 20 Mg Tab 20 Mg PO DAILY Omeprazole 40 Mg Cap 40 Mg DAILY Amlodipine (Amlodipine Besylate) 10 Mg Tab 10 Mg PO BID Aspirin EC (Aspirin) 81 Mg Tabdr 81 Mg PO DAILY Review of Systems Except as stated in HPI: all other systems reviewed are Neg Physical Exam Narrative GENERAL: SKIN: Warm and dry. HEAD: Atraumatic. Normocephalic. EYES: Pupils equal and round. No scleral icterus. No injection or drainage. ENT: No nasal bleeding or discharge. Mucous membranes pink and moist. Tongue is midline. No uvula deviation. NECK: Trachea midline. No JVD. CARDIOVASCULAR: Regular rate and rhythm. No murmurs, S3, S4. RESPIRATORY: No accessory muscle use. Clear to auscultation. Breath sounds equal bilaterally. GASTROINTESTINAL: Abdomen soft, non-tender, nondistended. Hepatic and splenic margins not palpable. No CVA tenderness noted. MUSCULOSKELETAL: Extremities without clubbing, cyanosis, or edema. No obvious deformities. Full range of motion of the upper and lower extremities bilaterally. 2+ pulses bilaterally. NEUROLOGICAL: Awake and alert. No obvious cranial nerve deficits. Motor grossly within normal limits. Five out of 5 muscle strength in the arms and legs. Normal speech. PSYCHIATRIC: Appropriate mood and affect; insight and judgment normal. Data Data Last Documented VS Vital Signs Date Time Temp Pulse Resp B/P (MAP) Pulse Ox O2 Delivery O2 Flow Rate FiO2 09/05/17 16:58 99.2 65 15 128/63 (84) 94 Orders Orders Urinalysis - C+S If Indicated (09/05/17 17:14) Urine Culture (09/05/17 UNK) Ct Abd/Pel W/O Iv Contrast (09/05/17 ) Complete Blood Count With Diff (09/05/17 19:13) Basic Metabolic Panel (Bmp) (09/05/17 19:13) Magnesium (Mg) (09/05/17 19:13) Ceftriaxone Inj (Rocephin Inj) (09/05/17 19:15) Ed Discharge Order (09/05/17 21:09) Labs Laboratory Tests Test 09/05/17 00:00 09/05/17 19:45 Urine Color YELLOW Urine Turbidity CLOUDY Urine pH 5.0 Urine Specific [place] 1.015 Urine Protein NEG mg/dL Urine Glucose (UA) NEG mg/dL Urine Ketones NEG mg/dL Urine Occult Blood SMALL Urine Nitrite POS Urine Bilirubin NEG Urine Urobilinogen LESS THAN 2 mg/dL Urine Leukocyte Esterase LARGE Urine RBC 15 /hpf Urine WBC /hpf Urine WBC Clumps MANY Urine Squamous Epithelial Cells 1 /hpf Urine Bacteria MANY /hpf Urine Mucus FEW /lpf Microscopic Urinalysis Comment CULTURE INDICATED White Blood Count 8.6 TH/MM3 Red Blood Count 4.96 MIL/MM3 Hemoglobin 13.7 GM/DL Hematocrit 39.5 % Mean Corpuscular Volume 79.6 FL Mean Corpuscular Hemoglobin 27.5 PG Mean Corpuscular Hemoglobin Concent 34.6 % Red Cell Distribution Width 14.0 % Platelet Count 236 TH/MM3 Mean Platelet Volume 6.9 FL Neutrophils (%) (Auto) 57.6 % Lymphocytes (%) (Auto) 30.4 % Monocytes (%) (Auto) 9.3 % Eosinophils (%) (Auto) 1.8 % Basophils (%) (Auto) 0.9 % Neutrophils # (Auto) 5.0 TH/MM3 Lymphocytes # (Auto) 2.6 TH/MM3 Monocytes # (Auto) 0.8 TH/MM3 Eosinophils # (Auto) 0.2 TH/MM3 Basophils # (Auto) 0.1 TH/MM3 CBC Comment DIFF FINAL Differential Comment Blood Urea Nitrogen 19 MG/DL Creatinine 0.93 MG/DL Random Glucose 99 MG/DL Calcium Level 8.6 MG/DL Magnesium Level 2.2 MG/DL Sodium Level 144 MEQ/L Potassium Level 4.1 MEQ/L Chloride Level 108 MEQ/L Carbon Dioxide Level 27.4 MEQ/L Anion Gap 9 MEQ/L Estimat Glomerular Filtration Rate 98 ML/MIN [facility] Medical Decision Making Medical Screen Exam Complete: Yes Emergency Medical Condition: Yes Medical Record Reviewed: Yes Interpretation(s) CBC & BMP Diagram 09/05/17 19:45 Calcium Level 8.6, Magnesium Level 2.2 UA shows UTI Last Impressions Abdomen/Pelvis CT 09/05/17 0000 Signed Impressions: CONCLUSION: No evidence of acute abdominal or pelvic process. No masses are identified. Tiny nonobstructing left renal stone Differential Diagnosis UTI versus pyelonephritis versus cystitis versus kidney stone Narrative Course 67-year-old male the presents to the ED for evaluation of dysuria and polyuria. Patient was properly examined and was found to have signs and symptoms concerning for UTI versus pylonephritis versus kidney stone. Labs and imaging ordered. Patient was started on ceftriaxone IV as he urine became positive for UTI. Labs and imaging otherwise showed UTI otherwise unremarkable. Patient was reassured. This time patient will be treated with ceftriaxone IV. Patient was given a prescription for keflex and Pyridium. Told to follow-up with PCP. See ED if worsening symptoms. Diagnosis Primary Impression: UTI (urinary tract infection) Qualified Codes: N30.01 - Acute cystitis with hematuria Patient Instructions: General Instructions Additional Instructions: Take medication as prescribed. Drink plenty of fluids. Follow-up with PCP. See ED if worsening symptoms. Med/Other Pt SpecificInfo: Prescription(s) given Scripts Phenazopyridine (Pyridium) 100 Mg Tab 100 MG PO Q8H Y for DYSURIA, #14 TAB 0 Refills Prov: Merary Palmer MD 09/05/17 Ciprofloxacin (Cipro) 500 Mg Tab 500 MG PO BID for Infection for 10 Days, #20 TAB 0 Refills Prov: Merary Palmer MD 09/05/17 Disposition: 01 DISCHARGE HOME Condition: Stable Anuj Acosta Sep 05, 2017 19:51
[2017-09-05 20:07] LABS: BASOPHIL # 0.1 TH/MM3 (0-0.2); BASOPHIL % 0.9 % (0.0-2.0); EOSINOPHIL # 0.2 TH/MM3 (0-0.4); EOSINOPHIL % 1.8 % (0.0-4.0); HEMATOCRIT 39.5 % (39.0-51.0); HEMOGLOBIN 13.7 GM/DL (13.0-17.0); LYMPH % 30.4 % (9.0-44.0); LYMPHOCYTE # 2.6 TH/MM3 (1.0-4.8); MEAN CELL VOLUME 79.6 FL (80.0-100.0); MEAN CORPUSCULAR HEMOGLOBIN 27.5 PG (27.0-34.0); MEAN CORPUSCULAR HGB CONC 34.6 % (32.0-36.0); MEAN PLATELET VOLUME 6.9 FL (7.0-11.0); MONO % 9.3 % (0.0-8.0); MONOCYTE # 0.8 TH/MM3 (0-0.9); NEUT % 57.6 % (16.0-70.0); PLATELET COUNT 236 TH/MM3 (150-450); RED BLOOD COUNT 4.96 MIL/MM3 (4.50-5.90); WHITE BLOOD COUNT 8.6 TH/MM3 (4.0-11.0)
[2017-09-05 20:34] LABS: BICARBONATE 27.4 MEQ/L (21.0-32.0); CALCIUM 8.6 MG/DL (8.5-10.1); CREATININE 0.93 MG/DL (0.60-1.30); MAGNESIUM 2.2 MG/DL (1.5-2.5)
[2017-09-05] MEDS ORDERED: CIPR-9 PO (20:43)
[2017-09-05] MEDS ORDERED: PHEN0.4T PO (20:43)
--- NOTE | 2017-09-05 21:01 | RADRPT ---
EXAM DATE: 09/05/2017 8:30 PM EDT AGE/SEX: 67 years / Male INDICATIONS: Right flank pain today. CLINICAL DATA: This is the patient's initial encounter. Patient reports that signs and symptoms have been present for 1 day and indicates a pain score of 7/10. MEDICAL/SURGICAL HISTORY: Carcinoma, prostatic. Diabetes. Hypertension. None. RADIATION DOSE: 19.89 CTDI (mGy) ; Patient body habitus COMPARISON: No prior exams available for comparison. TECHNIQUE: Multiple contiguous axial images were obtained through the abdomen. Images were obtained using multiple row detector helical technique. Using automated exposure control and adjustment of the mA and/or kV according to patient size, radiation dose was kept as low as reasonably achievable to o btain optimal diagnostic quality images. DICOM format image data is available electronically for rev iew and comparison. FINDINGS: There is decreased density of the liver with respect to the spleen compatible with fatty infiltration . The spleen is unremarkable. The spleen is normal in size and free of focal defects. The gallbladder and pancreas are unremarkable. No intrahepatic or extrahepatic ductal dilatation is seen. The adren al glands are unremarkable. There is a tiny punctate left renal stone measuring no more than 1 mm. T he right kidney is unremarkable. No hydroureter is seen. Examination of the pelvis demonstrates no evidence of free fluid or pelvic mass. No abnormally enlarg ed inguinal or retroperitoneal lymph nodes are present. The bladder is unremarkable. CONCLUSION: No evidence of acute abdominal or pelvic process. No masses are identified. Tiny nonobstructing left renal stone Electronically signed by: Ken Iglesias MD 09/05/2017 9:00 PM EDT
[2017-09-05] MEDS ORDERED: CEPH-460 PO (21:12)
== END 2017-09-05 21:20 | disposition home or self-care (01) ==
LOC: NEPE 16:33
DX: N30.01 Acute cystitis with hematuria (principal); E11.9 Type 2 diabetes mellitus without complications; E78.00 Pure hypercholesterolemia, unspecified; I10 Essential (primary) hypertension; Z79.4 Long term (current) use of insulin; Z79.899 Other long term (current) drug therapy
CPT/HCPCS: 74176; 80048; 81001; 83735; 85025; 87077; 87086; 87186; 96374; 99284; J0696